=== PATIENT | female | born 1990 | race Caucasian/White ===

== ENCOUNTER → 2018-10-01 | Outpatient (CLI) | payer OTHER ==
[~2018-10-01] MED LIST: IBUP200C25 PO; KEPP500T13 PO; LAMO25TA4; OMEP20CA3; VITA500T53 PO
--- NOTE | 2018-10-01 15:37 | REP ---
Chest two views HISTORY: Shortness of breath Comparison: None The lungs are clear. The heart is normal in size. The pulmonary vasculature is normal in appearance. The bony structure is intact. IMPRESSION: No acute disease. Electronically Signed by Arnol Shelton MD 10/01/2018 03:28 P
== END ==
LOC: M RAD 11:55
PROVIDERS: ATTEND Internal Medicine Cardiovascular Disease
DX: R06.02 Shortness of breath (principal)

== ENCOUNTER → 2019-02-07 | Outpatient (REF) | payer OTHER ==
[~2019-02-07] MED LIST changes: +VITA500T17 PO; -VITA500T53 PO
[2019-02-08 13:26] LABS: CHLAMYDIA DNA AMPLIFICATION NEGATIVE (NEGATIVE); GC DNA AMPLIFICATION NEGATIVE (NEGATIVE)
== END ==
LOC: M SFHCLERA 19:57
PROVIDERS: ATTEND Physician Assistant
DX: R30.0 Dysuria (principal)